=== PATIENT | male | born 1995 | race Asian ===

== ENCOUNTER 2017-12-30 13:36 | Emergency (ER) | payer OTHER ==
[2017-12-30 14:12] VITALS: BP 123/65
--- NOTE | 2017-12-30 14:41 | UC ---
Laceration HPI - HPI Summary HPI Summary: 22 yo male presents with laceration to left index finger. He tells me that about 2 hours [employer] he was cutting a bagel and the knife slipped and he sustained a laceration to his left index finger pad. He is up to date on his tetanus. - History Of Current Complaint Chief Complaint: UCLaceration Stated Complaint: FINGER LACERATION Time Seen by Provider: 12/30/17 14:36 Hx Obtained From: Patient Laceration Location: Finger Mechanism Of Injury: Sharp Trauma Onset/Duration: Sudden Onset Severity: Moderate Pain Intensity: 5 Pain Scale Used: 0-10 Numeric - Allergies/Home Medications Allergies/Adverse Reactions: Allergies Allergy/AdvReac Type Severity Reaction Status Date / Time No Known Allergies Allergy Verified 12/30/17 14:12 Home Medications: Home Medications NK [No Home Medications Reported] 12/30/17 [History Confirmed 12/30/17] PMH/Surg Hx/FS Hx/Imm Hx - Additional Past Medical History Additional PMH: None - Surgical History Surgical History: Yes Surgery Procedure, Year, and Place: right little finger for bone repair - Family History Known Family History: Positive: None - Social History Occupation: Student Lives: Dormitory/Roommates Alcohol Use: None Substance Use Type: None Smoking Status (MU): Never Smoked Tobacco Review of Systems Constitutional: Negative Skin: Other - Left index finger laceration Respiratory: Negative Cardiovascular: Negative Motor: Negative Musculoskeletal: Negative Neurological: Negative Psychological: Negative All Other Systems Reviewed And Are Negative: Yes Physical Exam - Summary Physical Exam Summary: GENERAL: NAD. WDWN. No pain distress. SKIN: LEFT INDEX FINGER: Distal finger pad with 5mm linear laceration with 2mm depth. No active bleeding and good approximation at rest. NECK: Supple. Nontender. No lymphadenopathy. CHEST: No accessory muscle use. Breathing comfortably and in no distress. CV: Pulses intact. Cap refill <2seconds NEURO: Alert. PSYCH: Age appropriate behavior. Triage Information Reviewed: Yes Vital Signs: Initial Vital Signs Temp 98.9 F 12/30/17 14:08 Pulse 70 12/30/17 14:08 Resp 18 12/30/17 14:08 BP 123/65 12/30/17 14:08 Pulse Ox 97 12/30/17 14:08 Vital Signs Reviewed: Yes Laceration Repair - Laceration Repair 1 Description: Linear Laceration Size After Repair: Length (cm) - 0.5 Closure Material: Skin Adhesive Closure Method: Single Layer Laceration Course/Dx - Course/Dx Course Of Treatment: Wound was cleansed with NS. Wound is at excellent approximation at rest and is not on an area of skin tension - therefore dermabond was applied and dressed with tube gauze. - Differential Dx - Laceration/Wound Provider Diagnoses: Left index finger laceration Discharge - Sign-Out/Discharge Documenting (check all that apply): Patient Departure All imaging exams completed and their final reports reviewed: No Studies - Discharge Plan Condition: Stable Disposition: HOME Patient Education Materials: Skin Adhesive Care (ED) Referrals: No Primary Care Phys,NOPCP [Primary Care Provider] - Additional Instructions: If you develop a fever, shortness of breath, chest pain, new or worsening symptoms - please call your PCP or go to the ED. 1) Keep the wound clean and bandaged until well healed - Billing Disposition and Condition Condition: STABLE Disposition: Home - Attestation Statements Provider Attestation: I was available for consult. This patient was seen by the DONYA. The patient was not presented to, seen by, or examined by me. -Ruiz
== END 2017-12-30 15:31 | disposition home or self-care (01) ==
LOC: UCEAST 13:36
DX: S61.211A Laceration without foreign body of left index finger without damage to nail, initial encounter (principal); W26.0XXA Contact with knife, initial encounter; Y93.G1 Activity, food preparation and clean up; Y92.9 Unspecified place or not applicable
CPT/HCPCS: 12001; 99201; 99202; G0463